=== PATIENT | female | born 1975 | race Caucasian/White ===

== ENCOUNTER 2017-03-12 19:58 | Emergency (ER) | payer MEDICAID ==
[2017-03-12 20:21] LABS: HEMATOCRIT 39.5 % (36.0-47.0); HEMOGLOBIN 13.2 g/dL (12.0-15.5); HGB HCT DIFFERENCE 0.1; MEAN CORPUSCULAR HGB CONC 33.4 g/dL (32.0-36.0); MEAN CORPUSCULAR VOLUME 90 fl (80-97); RED CELL DISTRIBUTION WIDTH 14.6 % (11.5-14.0)
--- NOTE | 2017-03-12 20:27 | ER Document Report ---
ED Substance Abuse / Acc. OD - General Stated Complaint: POSSIBLE OVERDOSE Time Seen by Provider: 03/12/17 20:10 Notes: Patient is a 41-year-old female who comes by EMS for chief complaint of overdose on heroin. Patient significant other called EMS reportedly, patient was initially gasping and very sedated, she was given 2 mg of intranasal Narcan , she responded very well to this and became alert and cooperative. Patient reports that she was having pain in her right arm/hand and in her back, she does have chronic pain, she used to be on pain management years ago but took herself off, she states that she was provided with the option of "a small hit", she states she made a stupid decision and took some. She states she has never done this before. She is treated for anxiety/PTSD/depression, she has never attempted suicide, she states she was just trying to feel better. She states she was feeling nauseated before but now she feels fine. She denies any other drug use or ingestion. - Related Data Allergies/Adverse Reactions: gabapentin [Gabapentin] Allergy (Verified 11/12/12 13:37) tramadol [Tramadol] Allergy (Verified 11/12/12 13:37) Past Medical History - General Information source: Patient - Social History Smoking Status: Never Smoker Frequency of alcohol use: None Drug Abuse: None Lives with: Family Family History: Reviewed & Not Pertinent Psychiatric Medical History: Reports: Hx Anxiety, Hx Depression Past Surgical History: Reports: Hx Gynecologic Surgery - tubal ligation, Hx Orthopedic Surgery - cervical fusion - Immunizations Immunizations up to date: Yes Hx Diphtheria, Pertussis, Tetanus Vaccination: Yes Review of Systems - Review of Systems Constitutional: No symptoms reported EENT: No symptoms reported Cardiovascular: See HPI Respiratory: See HPI Gastrointestinal: No symptoms reported Genitourinary: No symptoms reported Female Genitourinary: No symptoms reported Musculoskeletal: No symptoms reported Skin: No symptoms reported Hematologic/Lymphatic: No symptoms reported Neurological/Psychological: No symptoms reported Physical Exam - Vital signs Vitals: BP 115/85 03/12/17 20:02 Interpretation: Normal - General General appearance: Appears well, Alert In distress: None - Patient is tearful but she does not appear in any distress, she is alert, attentive, cooperative - HEENT Head: Normocephalic, Atraumatic Eyes: Normal Conjunctiva: Normal Extraocular movements intact: Yes Eyelashes: Normal Pupils: PERRL Nasal: Normal Mouth/Lips: Normal Mucous membranes: Normal Pharynx: Normal Neck: Normal - Respiratory Respiratory status: No respiratory distress Chest status: Nontender Breath sounds: Normal. No: Decreased air movement, Wheezing Chest palpation: Normal - Cardiovascular Rhythm: Regular. No: Tachycardia Heart sounds: Normal auscultation, S1 appreciated, S2 appreciated Murmur: No - Abdominal Inspection: Normal Distension: No distension Bowel sounds: Normal Tenderness: Nontender. No: Tender, Guarding Organomegaly: No organomegaly - Back Back: Normal, Nontender. No: Tender - Extremities General upper extremity: Normal inspection, Nontender, Normal ROM, Normal strength General lower extremity: Normal inspection, Nontender, Normal ROM, Normal strength - Neurological Neuro grossly intact: Yes Cognition: Normal Orientation: AAOx4 Good Coma Scale Eye Opening: Spontaneous [place] Coma Scale Verbal: Oriented [place] Coma Scale Motor: Obeys Commands Good Coma Scale Total: 15 Speech: Normal Motor strength normal: LUE, RUE, LLE, RLE Sensory: Normal - Psychological Associated symptoms: Tearful - Skin Skin Temperature: Warm Skin Moisture: Dry Skin Color: Normal Course - Re-evaluation Re-evalutation: Patient is actually tearful, she states she feels really embarrassed, she states she just wanted to feel better and she did not want to commit suicide. Patient is alert, cooperative, remorseful but is otherwise well-appearing. Vital signs unremarkable. Will continue to monitor, workup pending. Patient has been reevaluated twice, has been here for a couple of hours, she has remained alert throughout, no somnolence, no abnormalities with her breathing, no hypoxia. She has been here beyond the average duration of Narcan and has had no return of symptoms. Chest x-ray, workup unremarkable. I discussed with patient again the dangers of recreational illegal drugs, discussed both immediate life-threatening risks and long-term risks. Patient states she does not want to , she did not plan to hurt herself, she states that she has learned her lesson and she will never use illegal substances again. She states she has good follow-up with psychiatry and that she will follow-up with them on Tuesday, she states she will continue her current medications. Discussed return precautions with patient, patient states understanding and agreement, she states she will not be at home alone tonight - Vital Signs Vital signs: Temp Pulse Resp BP Pulse Ox 25 H 103/66 95 03/12/17 22:52 03/12/17 22:52 03/12/17 22:52 - Laboratory Result Diagrams: 03/12/17 20:00 03/12/17 20:00 Laboratory results interpreted by me: 03/12/17 03/12/17 20:00 20:54 RDW 14.6 H Band Neutrophils % 1 L Urine Protein 100 H Discharge - Discharge Clinical Impression: Overdose Qualifiers: Encounter type: initial encounter Injury intent: accidental or unintentional Qualified Code(s): T50.901A - Poisoning by unspecified drugs, medicaments and biological substances, accidental (unintentional), initial encounter Condition: Stable Disposition: HOME, SELF-CARE Additional Instructions: Avoid any recreational or illegal substances, these are life-threatening and you have a high risk of both the and serious long-term outcomes when using these. Follow-up with your provider on Tuesday for additional evaluation and management. Return to the emergency department for any concerning symptoms or if something is not right.
[2017-03-12 20:39] LABS: ALANINE AMINOTRANSFERASE 28 U/L (9-52); ALBUMIN 4.4 g/dL (3.5-5.0); ALKALINE PHOSPHATASE 57 U/L (38-126); ANION GAP 11 (5-19); ASPARTATE AMINO TRANSFERASE 35 U/L (14-36); BILIRUBIN,DIRECT 0.4 mg/dL (0.0-0.4); BILIRUBIN,TOTAL 0.4 mg/dL (0.2-1.3); BLOOD UREA NITROGEN 14 mg/dL (7-20); CALCIUM 9.5 mg/dL (8.4-10.2); CARBON DIOXIDE 24 mmol/L (22-30); CHLORIDE 105 mmol/L (98-107); CREATININE RESULT 0.77 mg/dL (0.52-1.25); GLUCOSE 98 mg/dL (75-110); POTASSIUM 3.9 mmol/L (3.6-5.0); SODIUM 140.4 mmol/L (137-145); TOTAL PROTEIN 7.7 g/dL (6.3-8.2)
[2017-03-12 20:40] LABS: ALCOHOL < 10 mg/dL (NONE DETECTED)
[2017-03-12 20:44] LABS: BAND NEUTROPHILS % (MANUAL) 1 % (3-5); BASOPHILS % (MANUAL) 0 % (0-2); EOSINOPHILS % (MANUAL) 4 % (0-6); LYMPHOCYTES % (MANUAL) 44 % (13-45); TOTAL CELLS COUNTED 100
[2017-03-12 20:45] LABS: ANISOCYTOSIS SLIGHT; TOXIC GRANULATION SLIGHT
--- NOTE | 2017-03-12 20:46 | RADIOLOGY REPORT (SQ) ---
EXAM DESCRIPTION: CHEST SINGLE VIEW COMPLETED DATE/TIME: 03/12/2017 8:37 pm REASON FOR STUDY: overdosed, initial gasping COMPARISON: 07/24/2013 EXAM PARAMETERS: NUMBER OF VIEWS: One view. TECHNIQUE: Single frontal radiographic view of the chest acquired. RADIATION DOSE: NA LIMITATIONS: None. FINDINGS: LUNGS AND PLEURA: No opacities, masses or pneumothorax. No pleural effusion. MEDIASTINUM AND HILAR STRUCTURES: No masses. Contour normal. HEART AND VASCULAR STRUCTURES: Heart normal in size. Normal vasculature. BONES: No acute findings. HARDWARE: None in the chest. OTHER: No other significant finding. IMPRESSION: NO ACUTE RADIOGRAPHIC FINDING IN THE CHEST. TECHNICAL DOCUMENTATION: JOB ID: [id number]
[2017-03-12 21:46] LABS: APPEARANCE,URINE CLEAR; BILIRUBIN,URINE NEGATIVE (NEGATIVE); GLUCOSE, URINE NEGATIVE (NEGATIVE); KETONES,URINE NEGATIVE (NEGATIVE); LEUKOCYTE ESTERASE,URINE NEGATIVE (NEGATIVE); NITRITE,URINE NEGATIVE (NEGATIVE); PROTEIN,URINE 100 mg/dL (NEGATIVE); URINE SPECIFIC GRAVITY 1.012; UROBILINOGEN,URINE NEGATIVE mg/dL (<2.0)
[2017-03-12 21:59] LABS: URINE BARBITURATES SCREEN NEGATIVE; URINE METHADONE SCREEN NEGATIVE; URINE OPIATES LOW UNCONFIRMED POSITIVE; URINE PHENCYCLIDINE SCREEN NEGATIVE
[2017-03-12 23:01] VITALS: BP 103/66
--- NOTE | 2017-03-13 16:58 | EKG REPORT ---
SEVERITY:- NORMAL ECG - SINUS RHYTHM : Confirmed by: Trang Duarte MD 13-Mar-2017 16:57:17
== END 2017-03-12 23:01 | disposition home or self-care (01) ==
LOC: ER 19:58
DX: T40.1X1A Poisoning by heroin, accidental (unintentional), initial encounter (principal); M79.641 Pain in right hand; M54.9 Dorsalgia, unspecified; G89.29 Other chronic pain; F41.9 Anxiety disorder, unspecified; F32.9 Major depressive disorder, single episode, unspecified; F43.10 Post-traumatic stress disorder, unspecified; Z88.6 Allergy status to analgesic agent; Z88.5 Allergy status to narcotic agent
CPT/HCPCS: 36415; 71010; 80053; 80307; 81001; 81025; 85025; 93005; 93010; 99284

== ENCOUNTER 2017-10-07 10:41 | Emergency (ER) | payer MEDICAID ==
[2017-10-07] MEDS ORDERED: TETRACAINE HCL 0.5% OPH SOLN 2 ML OS ONE (10:58)
[2017-10-07] MEDS ORDERED: HYDROCODONE/ACETAMINOPHEN 5-325 MG TABLET PO ONE (11:28)
--- NOTE | 2017-10-07 12:12 | RADIOLOGY REPORT (SQ) ---
EXAM DESCRIPTION: CT FACIAL AREA WITHOUT COMPLETED DATE/TIME: 10/07/2017 11:56 am REASON FOR STUDY: left orbital trauma COMPARISON: CT brain 12/17/2010 TECHNIQUE: Noncontrasted images through the facial bones and orbits windowed for bone and soft tissu e. Additional coronal and sagittal reconstructed images reviewed. All images stored on PACS. All CT scanners at this facility use dose modulation, iterative reconstruction, and/or weight based d osing when appropriate to reduce radiation dose to as low as reasonably achievable (ALARA). [facility]: Dose Right [facility]: CareDose [facility]: Dose Right [facility]: Teradose 4D [facility]: [employer] RADIATION DOSE: CT Rad equipment meets quality standard of care and radiation dose reduction techniq ues were employed. CTDIvol: 30.4 mGy. DLP: 532 mGy-cm. mGy. LIMITATIONS: None. FINDINGS: FACIAL BONES: There is a hairline nondisplaced nondepressed fracture through the anterior wall left maxillary sinus with adjacent mucous membrane thickening and fluid in the left maxillary si nus. Hairline fracture is best shown on axial images 32-34 and sagittal image 36 through 38. Question nondisplaced fracture through the posterior wall left maxillary sinus on axial images 29 and 30 with adjacent mucous membrane thickening. No definite left orbital floor fracture. No intra orbital air. ORBITS: Intact. No fracture. Symmetric intact globes and retroorbital soft tissues. Mild left pres eptal orbital soft tissue swelling PARANASAL SINUSES: Left maxillary sinus anterior and lateral wall mucous membrane thickening and air bubbles, adjacent to hairline nondisplaced fractures. No nasal polyps. Maxillary sinus outlets are p atent. SOFT TISSUES: Left preseptal orbital soft tissue swelling. Very mild left pre maxillary soft tissue swelling INFERIOR BRAIN: Limited view. No acute findings. OTHER: No other significant finding. IMPRESSION: Hairline nondisplaced fractures are suspected along the left anterior wall and lateral w all maxillary sinus. No left orbital floor fractures identified. Very mild left preseptal orbital soft tissue swelling is seen. TECHNICAL DOCUMENTATION: JOB ID: [id number] Quality ID # [id number]: Final reports with documentation of one or more dose reduction techniques (e.g., Au tomated exposure control, adjustment of the mA and/or kV according to patient size, use of iterative reconstruction technique) 2010 [employer]- All Rights Reserved Reading location - IP/workstation name: [email or web address]
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
[2017-10-07 13:16] VITALS: BP 113/70
== END 2017-10-07 13:30 | disposition home or self-care (01) ==
LOC: ER 10:41
DX: S02.80XA Fracture of other specified skull and facial bones, unspecified side, initial encounter for closed fracture (principal); H53.8 Other visual disturbances; H57.11 Ocular pain, right eye; Y04.2XXA Assault by strike against or bumped into by another person, initial encounter; Z88.6 Allergy status to analgesic agent; Z88.5 Allergy status to narcotic agent
CPT/HCPCS: 99284; 70486; J3490

== ENCOUNTER 2018-02-09 20:50 | Emergency (ER) | payer MEDICAID ==
--- NOTE | 2018-02-09 22:54 | ER Document Report ---
ED Medical Screen (RME) - General Chief Complaint: Vaginal Bleeding Stated Complaint: VAGINAL BLEEDING Time Seen by Provider: 02/09/18 22:49 Notes: 42-year-old A1 at 10-13 weeks gestation by last menstrual period, started bleeding and cramping within the past day. Denies trauma. States she had a tubal ligation but this is her second since the tubal ligation. Last was not an ectopic . TRAVEL OUTSIDE OF THE [place] IN LAST 30 DAYS: No - Related Data Allergies/Adverse Reactions: gabapentin [Gabapentin] Allergy (Verified 11/12/12 13:37) tramadol [Tramadol] Allergy (Verified 11/12/12 13:37) Past Medical History - Social History Frequency of alcohol use: None Drug Abuse: None Renal/ Medical History: Denies: Hx Peritoneal Dialysis Psychiatric Medical History: Reports: Hx Anxiety, Hx Depression Past Surgical History: Reports: Hx Gynecologic Surgery - tubal ligation, Hx Orthopedic Surgery - cervical fusion - Immunizations Immunizations up to date: Yes Hx Diphtheria, Pertussis, Tetanus Vaccination: Yes Physical Exam - Vital signs Vitals: Temp Pulse Resp BP Pulse Ox 97.7 F 96 18 113/70 100 02/09/18 20:55 02/09/18 20:55 02/09/18 20:55 02/09/18 20:55 02/09/18 20:55 - General General appearance: Appears well In distress: None - Abdominal Inspection: Normal Tenderness: Nontender Course - Vital Signs Vital signs: Temp Pulse Resp BP Pulse Ox 97.7 F 96 18 113/70 100 02/09/18 20:55 02/09/18 20:55 02/09/18 20:55 02/09/18 20:55 02/09/18 20:55
[2018-02-09 23:14] LABS: ABSOLUTE BASOPHILS # (AUTO) 0.1 10^3/uL (0.0-0.2); ABSOLUTE EOSINOPHILS # (AUTO) 0.4 10^3/uL (0.0-0.6); ABSOLUTE LYMPHOCYTES (AUTO) 3.1 10^3/uL (0.5-4.7); ABSOLUTE MONOCYTES (AUTO) 0.7 10^3/uL (0.1-1.4); ABSOLUTE NEUT (AUTO) 7.1 10^3/uL (1.7-8.2); BASOPHILS % (AUTO) 0.5 % (0-2); EOSINOPHILS % (AUTO) 3.5 % (0-6); HEMOGLOBIN 13.5 g/dL (12.0-15.5); LYMPHOCYTES % (AUTO) 27.1 % (13-45); MEAN CORPUSCULAR HEMOGLOBIN 29.6 pg (27.0-33.4); MEAN CORPUSCULAR HGB CONC 33.1 g/dL (32.0-36.0); MEAN CORPUSCULAR VOLUME 89 fl (80-97); MONOCYTES % (AUTO) 6.6 % (3-13); PLATELET COUNT 207 10^3/uL (150-450); RED BLOOD COUNT 4.58 10^6/uL (3.72-5.28); SEGMENTED NEUTROPHILS % (AUTO) 62.3 % (42-78); TOTAL CELLS COUNTED % (AUTO) 100 %; WHITE BLOOD COUNT 11.4 10^3/uL (4.0-10.5)
[2018-02-09] MEDS ORDERED: ONDANSETRON 4 MG TAB.RAPDIS PO ONE (23:57)
[2018-02-10] MEDS ORDERED: IBUPROFEN 600 MG TABLET PO ONE (00:19)
--- NOTE | 2018-02-10 00:19 | ER Document Report ---
ED General - General Chief Complaint: Vaginal Bleeding Stated Complaint: VAGINAL BLEEDING Time Seen by Provider: 02/09/18 22:49 Notes: Patient is a 42-year-old female who presents with vaginal bleeding and lower abdominal cramping in the context of currently believing that she is . The patient states that she had a positive test while in group home. Her LMP was approximately 10-12 weeks ago. She had a tubal ligation in the past but has had one since that time. She describes her abdominal pain as being located toward her pelvis and has a throbbing, aching, cramping pain. She has not tried anything to improve the pain. Nothing worsens the pain. She states this feels similar to menstrual pains that she has had in the past. She also notes bleeding through approximately 1 pad over the last 3 hours. She denies any fever or constitutional symptoms. She has not seen her general doctor regarding today's concerns. TRAVEL OUTSIDE OF THE [place] IN LAST 30 DAYS: No - Related Data Allergies/Adverse Reactions: gabapentin [Gabapentin] Allergy (Verified 11/12/12 13:37) tramadol [Tramadol] Allergy (Verified 11/12/12 13:37) Past Medical History - General Information source: Patient - Social History Smoking Status: Former Smoker Frequency of alcohol use: None Drug Abuse: None Lives with: Spouse/Significant other Family History: Reviewed & Not Pertinent Patient has suicidal ideation: No Patient has homicidal ideation: No Renal/ Medical History: Denies: Hx Peritoneal Dialysis Psychiatric Medical History: Reports: Hx Anxiety, Hx Depression Past Surgical History: Reports: Hx Gynecologic Surgery - tubal ligation, Hx Orthopedic Surgery - cervical fusion - Immunizations Immunizations up to date: Yes Hx Diphtheria, Pertussis, Tetanus Vaccination: Yes Review of Systems - Review of Systems Notes: Constitutional: Negative for fever. HENT: Negative for sore throat. Eyes: Negative for visual changes. Cardiovascular: Negative for chest pain. Respiratory: Negative for shortness of breath. Gastrointestinal: Positive for lower abdominal pain Genitourinary: Positive for vaginal bleeding Musculoskeletal: Negative for back pain. Skin: Negative for rash. Neurological: Negative for headaches, weakness or numbness. 10 point ROS negative except as marked above and in HPI. Physical Exam - Vital signs Vitals: Temp Pulse Resp BP Pulse Ox 97.7 F 96 18 113/70 100 02/09/18 20:55 02/09/18 20:55 02/09/18 20:55 02/09/18 20:55 02/09/18 20:55 Interpretation: Normal Notes: PHYSICAL EXAMINATION: GENERAL: Well-appearing, well-nourished and in no acute distress. HEAD: Atraumatic, normocephalic. EYES: Pupils equal round and reactive to light, extraocular movements intact, sclera anicteric, conjunctiva are normal. ENT: nares patent, oropharynx clear without exudates. Moist mucous membranes. NECK: Normal range of motion, supple without lymphadenopathy LUNGS: Breath sounds clear to auscultation bilaterally and equal. No wheezes rales or rhonchi. HEART: Regular rate and rhythm without murmurs ABDOMEN: Soft, nontender, normoactive bowel sounds. No guarding, no rebound. No masses appreciated. EXTREMITIES: Normal range of motion, no pitting or edema. No cyanosis. NEUROLOGICAL: No focal neurological deficits. Moves all extremities spontaneously and on command. PSYCH: Normal mood, normal affect. SKIN: Warm, Dry, normal turgor, no rashes or lesions noted. Course - Re-evaluation Re-evalutation: 02/10/18 00:27 Patient presents with several hours of lower abdominal cramping and heavy vaginal bleeding. The patient states that she had been told while in group home that she was based on a positive blood test. LMP was approximately 12 weeks ago. Patient's serum hCG is negative. Her hemoglobin is within normal limits. She has not bled through more than 1 pad per hour at any time. On abdominal examination she has no focal tenderness, rebound or guarding. She states that the vaginal bleeding is slowing. Vitals within normal limits. She has not had any fever or constitutional symptoms I do not suspect pelvic inflammatory disease, tubo-ovarian abscess, acute appendicitis, or any alternative life threatening allergy at this time based on exam and history. I have offered a vaginal ultrasound to the patient which she and her significant other the bedside of declined stating that now that they know she is not with a very firmly believe that this is an acute menstrual cycle. At this time will discharge with return precautions and follow-up recommendations. Verbal discharge instructions given a the bedside and opportunity for questions given. Medication warnings reviewed. Patient is in agreement with this plan and has verbalized understanding of return precautions and the need for primary care follow-up in the next 24-72 hours. - Vital Signs Vital signs: Temp Pulse Resp BP Pulse Ox 98.4 F 83 20 102/66 100 02/10/18 00:40 02/10/18 00:40 02/10/18 00:40 02/10/18 00:40 02/10/18 00:40 - Laboratory Result Diagrams: 02/09/18 23:00 Laboratory results interpreted by me: 02/09/18 23:00 WBC 11.4 H RDW 15.0 H Discharge - Discharge Clinical Impression: Abdominal cramping, Vaginal bleeding Condition: Good Disposition: HOME, SELF-CARE Additional Instructions: You are not . Your blood count is normal. You need to follow-up with [facility] or your primary care physician the next 1-3 days. Return immediately if you worsening pain, you began bleeding through more than 2 pads per hour for more than 3 hours, you pass out, have persistent vomiting, develop a fever greater than 100.4F, or any other symptoms that are concerning to you. For your pain: Take ibuprofen 600 mg and acetaminophen 1000 mg every 6 hours together as needed for pain.
[2018-02-10] MEDS ORDERED: ACETAMINOPHEN 325 MG TABLET PO ONE (00:24)
[2018-02-10 00:47] VITALS: BP 102/66
== END 2018-02-10 00:45 | disposition home or self-care (01) ==
LOC: ER 20:50
DX: N93.9 Abnormal uterine and vaginal bleeding, unspecified (principal); R10.30 Lower abdominal pain, unspecified; Z32.02 Encounter for pregnancy test, result negative; Z98.51 Tubal ligation status; Z88.6 Allergy status to analgesic agent; Z88.5 Allergy status to narcotic agent; Z87.891 Personal history of nicotine dependence
CPT/HCPCS: 99284; 86900; 86901; 36415; 84702; 85025; J3490 ×2; S0119

== ENCOUNTER 2018-05-01 15:53 | Emergency (ER) | payer MEDICAID ==
[2018-05-01] MEDS ORDERED: KETOROLAC TROMETHAMINE INJ/PF 30 MG/1 ML SDV IM ONE (17:10)
[2018-05-01] MEDS ORDERED: DEXAMETHASONE 4 MG TABLET PO ONE (17:11)
[2018-05-01] MEDS ORDERED: LIDOCAINE 5% (700 MG) TRANSDERMAL ADH..PATCH TP ONE (17:11)
--- NOTE | 2018-05-01 17:47 | RADIOLOGY REPORT (SQ) ---
EXAM DESCRIPTION: L SPINE WHOLE COMPLETED DATE/TIME: 05/01/2018 5:36 pm REASON FOR STUDY: low back pain with left sciatica COMPARISON: None. NUMBER OF VIEWS: Five views including obliques. TECHNIQUE: AP, lateral, oblique, and sacral radiographic images acquired of the lumbar spine. LIMITATIONS: None. FINDINGS: MINERALIZATION: Normal. SEGMENTATION: Normal. No transitional anatomy. ALIGNMENT: Normal. VERTEBRAE: Maintained height. No fracture or worrisome bone lesion. DISCS: Preserved height. No significant osteophytes or end plate irregularity. POSTERIOR ELEMENTS: Pedicles and facets are intact. No pars defect or posterior arch defects. HARDWARE: None in the spine. PARASPINAL SOFT TISSUES: Normal. PELVIS: Intact as visualized. No fractures or worrisome bone lesions. SI joints intact. OTHER: No other significant finding. IMPRESSION: NORMAL 5 VIEW LUMBAR SPINE. TECHNICAL DOCUMENTATION: JOB ID: [id number] [employer]- All Rights Reserved Reading location - IP/workstation name: [email or web address]
--- NOTE | 2018-05-01 18:17 | ER Document Report ---
ED Neck/Back Problem - General Chief Complaint: Low Back Pain Stated Complaint: LOWER BACK PAIN Time Seen by Provider: 05/01/18 16:40 Mode of Arrival: Ambulatory Information source: Patient Notes: 42-year-old female presents to ED for complaint of low back pain. She states she came from the urgent care because they stated they could not help her because she had hot pain going down her buttocks down her thigh. Patient states she has had this in the past but has not been this bad. Patient is alert and oriented respirations regular and unlabored speaking in full sentences. TRAVEL OUTSIDE OF THE [place] IN LAST 30 DAYS: No - HPI Patient complains to provider of: Lower back Onset: Other - Several days Onset: Chronic Timing: Waxing and waning Quality of pain: Burning, Sharp, Throbbing Severity: Moderate Pain Level: 4 Recent injury: No Associated symptoms: Like prior neck/back pain, Radiation to leg, Lower back pain. denies: Incontinence, Motor loss, Numbness/tingling, Sensory loss, Sweaty , Unable to urinate Exacerbated by: Movement of trunk, Sitting position Relieved by: Nothing Similar symptoms previously: Yes - Not as bad or on the side Recently seen / treated by doctor: No - Related Data Allergies/Adverse Reactions: gabapentin [Gabapentin] Allergy (Verified 11/12/12 13:37) tramadol [Tramadol] Allergy (Verified 11/12/12 13:37) Past Medical History - General Information source: Patient - Social History Smoking Status: Current Every Day Smoker Cigarette use (# per day): Yes - 5 cigarettes a day Chew tobacco use (# tins/day): No Smoking Education Provided: Yes - 4 minutes Frequency of alcohol use: Rare Drug Abuse: None Lives with: Alone Family History: Reviewed & Not Pertinent Patient has suicidal ideation: No Patient has homicidal ideation: No - Past Medical History Cardiac Medical History: Reports: None Pulmonary Medical History: Reports: None EENT Medical History: Reports: None Neurological Medical History: Reports: None Endocrine Medical History: Reports: None Renal/ Medical History: Reports: None Malignancy Medical History: Reports: None GI Medical History: Reports: None Musculoskeletal Medical History: Reports Hx Arthritis, Reports Hx Musculoskeletal Deformity, Reports Hx Musculoskeletal Trauma Skin Medical History: Reports None Psychiatric Medical History: Reports: Hx Anxiety, Hx Depression - anxiety Traumatic Medical History: Reports: None Infectious Medical History: Reports: None Past Surgical History: Reports: Hx Gynecologic Surgery - tubal ligation, Hx Orthopedic Surgery - cervical fusion - Immunizations Immunizations up to date: Yes Hx Diphtheria, Pertussis, Tetanus Vaccination: Yes Review of Systems - Review of Systems Notes: REVIEW OF SYSTEMS: CONSTITUTIONAL : Denies fever, chills, or sweats. Denies recent illness. EENT: Denies eye, ear, throat, or mouth pain or symptoms. Denies nasal or sinus congestion or discharge. Denies throat, tongue, or mouth swelling or difficulty swallowing. CARDIOVASCULAR: Denies chest pain. Denies palpitations or racing or irregular heart beat. Denies ankle edema. RESPIRATORY: Denies cough, cold, or chest congestion. Denies shortness of breath, difficulty breathing, or wheezing. GASTROINTESTINAL: Denies abdominal pain or distention. Denies nausea, vomiting , or diarrhea. Denies blood in vomitus, stools, or per rectum. Denies black, tarry stools. Denies constipation. GENITOURINARY: Denies difficulty urinating, painful urination, burning, frequency, blood in urine, or discharge. FEMALE GENITOURINARY: Denies vaginal bleeding, heavy or abnormal periods, irregular periods. Denies vaginal discharge or odor. MUSCULOSKELETAL: Complains of low back pain with radiation down the left leg increased pain with movement sitting or walking. Denies any loss of control of bowel or bladder, saddle anesthesia, loss control or sensation to the lower extremities. SKIN: Denies rash, lesions or sores. HEMATOLOGIC : Denies easy bruising or bleeding. LYMPHATIC: Denies swollen, enlarged glands. NEUROLOGICAL: Denies confusion or altered mental status. Denies passing out or loss of consciousness. Denies dizziness or lightheadedness. Denies headache. Denies weakness or paralysis or loss of use of either side. Denies problems with gait or speech. Denies sensory loss, numbness, or tingling. Denies seizures. PHYSICAL EXAMINATION: GENERAL: Well-appearing, well-nourished and in no acute distress. HEAD: Atraumatic, normocephalic. EYES: Pupils equal round and reactive to light, extraocular movements intact, conjunctiva are normal. ENT: Nares patent, oropharynx clear without exudates. Moist mucous membranes. NECK: Normal range of motion, supple without lymphadenopathy LUNGS: Breath sounds clear to auscultation bilaterally and equal. No wheezes rales or rhonchi. HEART: Regular rate and rhythm without murmurs ABDOMEN: Soft, nontender, nondistended abdomen. No guarding, no rebound. No masses appreciated. Female : deferred Musculoskeletal: Tenderness to the lower back radiating across left buttock cheek down the left thigh full range of motion brisk cap refills pulses present palpable strength equal to the pedal pushes. NEUROLOGICAL: Cranial nerves grossly intact. Normal speech, normal gait. Normal sensory, motor exams PSYCH: Normal mood, normal affect. SKIN: Warm, Dry, normal turgor, no rashes or lesions noted. PSYCHIATRIC: Denies anxiety or stress. Denies depression, suicidal ideation, or homicidal ideation. ALL OTHER SYSTEMS REVIEWED AND NEGATIVE. Dictation was performed using [employer] voice recognition software Physical Exam - Vital signs Vitals: Temp Pulse Resp BP Pulse Ox 98.1 F 109 H 20 131/88 H 100 05/01/18 15:58 05/01/18 15:58 05/01/18 15:58 05/01/18 15:58 05/01/18 15:58 Course - Re-evaluation Re-evalutation: 05/01/18 22:09 After performing a Medical Screening Examination, I estimate there is LOW risk for EXPANDING OR RUPTURED ABDOMINAL AORTIC ANEURYSM, CAUDA EQUINA SYNDROME, EPIDURAL MASS LESION, or HERNIATED DISK CAUSING SEVERE SPINAL STENOSIS, thus I consider the discharge disposition reasonable. I have reevaluated this patient multiple times and no significant life threatening changes are noted. The patient and I have discussed the diagnosis and risks, and we agree with discharging home and close follow-up. We also discussed returning to the Emergency Department immediately if new or worsening symptoms occur with the understanding that symptoms and presentations can change. We have discussed the symptoms which are most concerning (e.g., saddle anesthesia, urinary or bowel incontinence or retention, changing or worsening pain) that necessitate immediate return. - Vital Signs Vital signs: Temp Pulse Resp BP Pulse Ox 98.0 F 90 18 123/70 99 05/01/18 18:28 05/01/18 18:28 05/01/18 18:28 05/01/18 18:28 05/01/18 18:28 - Diagnostic Test Radiology reviewed: Image reviewed, Reports reviewed Discharge - Discharge Clinical Impression: Low back pain Qualifiers: Chronicity: unspecified Back pain laterality: left Sciatica presence: with sciatica Sciatica laterality: sciatica of left side Qualified Code(s): M54.42 - Lumbago with sciatica, left side Condition: Stable Disposition: HOME, SELF-CARE Instructions: Family Physicians / Practices Additional Instructions: LOW BACK PAIN: Three out of every four people will have an episode of disabling back pain during their lifetime. Most commonly the pain is due to straining of the muscles and ligaments in the low back. Usual treatment includes: (1) Rest on a firm surface. Avoid lying on your stomach. (2) Ice pack the painful area. After a few days, gentle heat may be used intermittently to relax the area, or ice packs can be continued. (3) Medication may be needed -- muscle relaxers and antiinflammatory medicines are commonly used. (4) As the back improves, exercises are prescribed to strengthen the back and abdominal muscles. Your doctor will advise you on the proper care for your back at each stage in your recovery. You may be better in a few days -- or healing may take several weeks. If new symptoms of a "herniated disc" (radiation of pain, numbness, or tingling down the back of the leg or weakness in the leg) occur, you should be re-examined. Further testing may be necessary. Stretching Exercises for the Back The physician has recommended that you begin stretching exercises for your back. These are often used even while the back is painful. However, you should notify the physician if the activities seem to increase your pain. PELVIC TILT: Lie flat on your back with knees bent. Tighten your stomach and buttock muscles so it flattens your lower back against the floor. Hold 10 seconds. Repeat 10 times, twice daily. KNEE RAISE: Lying on the back with knees bent, raise one knee to your chest, then the other. Hold both knees against the chest 10 seconds, then lower one knee at a time. Repeat 10 times, twice daily. PARTIAL TRUNK RAISE: Lie face down, arms at your sides. Keeping your waist on the floor, use your arms raise your chest up. Support yourself on your elbows for 30 seconds. Repeat twice daily, increasing the time to two minutes as you recover. STEROID MEDICATION: You have been given a medicine of the cortisone/steroid class. This medication is used to control inflammation or allergy. It is usually only given for a short period of time, until the acute process subsides. There are usually no side effects from short-term use of cortisone-like medications. Some persons feel an increased sense of well-being and are not sleepy at bedtime. Long-term use of cortisone medications is best avoided, unless required for a severe condition. If your condition does not remit, or relapses after the course of corticosteroid medication, you should consult your physician. Toradol Injection You have been given an injection of ketorolac tromethamine (Toradol). This is an excellent, safe drug for pain control. It also has potent antiinflammatory action. You should have significant pain relief within about one hour. Toradol is not addicting and is non-sedating. It does not interfere with driving or work. Call or return if you develop itching, hives, shortness of breath, or rash. MUSCLE RELAXERS: Muscle relaxing medications are usually prescribed for acute muscle spasm or injury to the neck and back. They are often combined with antiinflammatory pain medication for increased relief. You may stop the muscle relaxer when the pain and stiffness have improved. Start the medication again if spasms recur. Muscle relaxers may cause drowsiness, especially with the first dose. Do not operate machinery or drive while under the effects of the medication. Most muscle relaxers last up to 24 hours. Do not combine the medication with alcohol. ICE PACKS: Apply ice packs frequently against the painful area. Many different schedules are recommended, such as "20 minutes on, 20 minutes off" or "one hour ice, two hours rest." If you need to work, you may need to go longer between ice treatments. You should plan to have the area ice packed AT LEAST one fourth of the time. The ice should be applied over the wrap, tape, or splint, or over a layer of cloth -- not directly against the skin. Some ice bags have a built-in cloth and can be put directly on the skin. WARM PACKS: After approximately two days, apply gentle heat (such as a heating pad or hot water bottle) for about 20 to 30 minutes about every two hours -- at least four times daily. Warmth and elevation will help you make a more rapid recovery , and will ease the pain considerably. Do not use HOT heat, and never apply heat for longer than 30 minutes. The continuous heat can invisibly damage skin and muscles -- even when no burn is seen on the surface. Damaged muscles can make you MORE sore. You have had a Lidoderm patch applied to your back. This is prescription strength. You can buy these [id number]. You needed to take this 1 off in 12 hours. Follow the instructions on the box if you buy [id number] Lidoderm patches. FOLLOW-UP CARE: If you have been referred to a physician for follow-up care, call the physician s office for an appointment as you were instructed or within the next two days. If you experience worsening or a significant change in your symptoms, notify the physician immediately or return to the Emergency Department at any time for re-evaluation. Prescriptions: Methocarbamol [Robaxin 500 mg Tablet] 500 mg PO BID PRN #14 tablet PRN Reason: For Back Pain Forms: Elevated Blood Pressure, Smoking Cessation Education, Return to Work
[2018-05-01 18:30] VITALS: BP 123/70
== END 2018-05-01 18:30 | disposition home or self-care (01) ==
LOC: ER 15:53
DX: M54.42 Lumbago with sciatica, left side (principal); G89.29 Other chronic pain; F17.210 Nicotine dependence, cigarettes, uncomplicated; Z71.6 Tobacco abuse counseling; Z88.6 Allergy status to analgesic agent; Z88.5 Allergy status to narcotic agent
CPT/HCPCS: 99406; 99283; 96372; 72110; J3490 ×2; J1885

== ENCOUNTER 2018-05-04 05:42 | Emergency (ER) | payer MEDICAID ==
[2018-05-04] MEDS ORDERED: MORPHINE SULFATE 10 MG/ML INJ IM ONE (06:44)
[2018-05-04] MEDS ORDERED: KETOROLAC TROMETHAMINE 60 MG/2 ML SDV IM ONE (06:44)
[2018-05-04] MEDS ORDERED: METHOCARBAMOL 750 MG TABLET PO ONE (06:44)
[2018-05-04] MEDS ORDERED: PREDNISONE 20 MG TABLET PO ONE (06:45)
--- NOTE | 2018-05-04 06:45 | ER Document Report ---
ED General - General Chief Complaint: Leg Pain Stated Complaint: LEG PAIN Time Seen by Provider: 05/04/18 06:21 Notes: Patient is a 42-year-old female that presents to the emergency department for chief complaint of left thigh pain. Patient states that she has been having pain in her left thigh for the past 4 days, she was having pain similar to sciatica she has had 2 days ago, was treated with dexamethasone injection, and Toradol in the ED at that time. But this pain is not improved, she describes it over the left lateral distal thigh, she states it feels like spasming its tenths, occasionally feels a tingling sensation there as well. Denies any pain distal to the knee. She also denies any numbness, tingling or weakness associated with this, denies saddle anesthesias or paresthesias. Denies urinary or bladder incontinence. She currently rates the pain as a 8 out of 10 , describes as a constant aching sensation. Past Medical History: Depression Past Surgical History: Cervical spine fusion Social History: Admits to occasional tobacco use, denies alcohol or drug use. Family History: Reviewed and noncontributory for presenting illness Allergies: Reviewed, see documented allergy list. REVIEW OF SYSTEMS: Other than noted above, the 12 point review of systems was reviewed with the patient and were negative, all pertinent findings are included in the HPI. PHYSICAL EXAMINATION: Vital signs reviewed, nursing noted reviewed. GENERAL: Well-appearing, well-nourished and appears uncomfortable HEAD: Atraumatic, normocephalic. EYES: Eyes appear normal, extraocular movements intact, sclera anicteric, conjunctiva are normal. ENT: nares patent, oropharynx clear without exudates. Moist mucous membranes. NECK: Normal range of motion, supple without lymphadenopathy LUNGS: Breath sounds clear to auscultation bilaterally and equal. No wheezes rales or rhonchi. HEART: Regular rate and rhythm without murmurs ABDOMEN: Soft, nontender, normoactive bowel sounds. No rebound, guarding, or rigidity. No masses appreciated. EXTREMITIES: Patient has focal tenderness to palpation over the lateral IT band , over the distal third portion, the area does feel tense and possibly in spasm nontender, the knee has good range of motion, no effusion, and no pain with range of motion, the hip has good range of motion as well. Negative straight leg raising bilaterally. Otherwise good range of motion, no pitting or edema. There is no presence of rashes as well. NEUROLOGICAL: No focal neurological deficits. Moves all extremities spontaneously Motor and sensory grossly intact on exam. Patellar and Achilles tendon reflexes are +2/4 bilaterally. PSYCH: Normal mood, normal affect. SKIN: Warm, Dry, normal turgor, no rashes or lesions noted on exposed skin TRAVEL OUTSIDE OF THE [place] IN LAST 30 DAYS: No - Related Data Allergies/Adverse Reactions: dextromethorphan Allergy (Verified 05/04/18 06:24) gabapentin [Gabapentin] Allergy (Verified 11/12/12 13:37) tramadol [Tramadol] Allergy (Verified 11/12/12 13:37) Past Medical History - Social History Smoking Status: Current Every Day Smoker Family History: Reviewed & Not Pertinent Patient has suicidal ideation: No Patient has homicidal ideation: No Renal/ Medical History: Denies: Hx Peritoneal Dialysis Musculoskeletal Medical History: Reports Hx Arthritis, Reports Hx Musculoskeletal Deformity, Reports Hx Musculoskeletal Trauma Psychiatric Medical History: Reports: Hx Anxiety, Hx Depression - anxiety Past Surgical History: Reports: Hx Gynecologic Surgery - tubal ligation, Hx Orthopedic Surgery - cervical fusion - Immunizations Immunizations up to date: Yes Hx Diphtheria, Pertussis, Tetanus Vaccination: Yes Physical Exam - Vital signs Vitals: Temp Pulse Resp BP Pulse Ox 98.1 F 122 H 17 124/90 H 99 05/04/18 05:46 05/04/18 05:46 05/04/18 05:46 05/04/18 05:46 05/04/18 05:46 Course - Re-evaluation Re-evalutation: Patient seen and examined vital signs reviewed. Patient was evaluated and treated as appropriate for the patient's presenting symptoms and complaint, with consideration of any critical or life threatening conditions that may be associated with their obtained history and exam as noted above. Patient was treated with IM morphine, and Toradol, as well as p.o. Robaxin, and prednisone. The patient was re-evaluated and was improved and stable Evaluation was most consistent with left leg pain, nonspecific, possibly IT band syndrome, versus atypical lumbar radiculopathy. Plan of care was discussed with the patient at this point, after careful consideration I feel that that patient can be discharged from the emergency department, the patient was educated treatments and reasons to return to the emergency department based on their presumed diagnosis as noted above, they were advised to followup with a primary care physician in 2-3 days. Patient was agreeable to plan of care. *Note is created using voice recognition software and may contain spelling, syntax or grammatical errors. - Vital Signs Vital signs: Temp Pulse Resp BP Pulse Ox 98.1 F 122 H 17 124/90 H 99 05/04/18 05:46 05/04/18 05:46 05/04/18 05:46 05/04/18 05:46 05/04/18 05:46 Discharge - Discharge Clinical Impression: Left leg pain Condition: Stable Disposition: HOME, SELF-CARE Instructions: Leg Pain Nonspecific ([facility]) Additional Instructions: Please follow-up with orthopedic surgery, call for appointment, and may need physical therapy. Please take the medications as prescribed, otherwise follow- up with your primary care physician as well. You should also use warm compresses for 20 minutes on 20 minutes off at least 3 times daily to help with your pain, also you should take the prescribed medications to help as well. Prescriptions: Naproxen 500 mg PO BID #30 tablet Prednisone [Deltasone 20 mg Tablet] 3 tab PO DAILY 4 Days #12 tablet Referrals: JOSE J SARABIA MD [ACTIVE STAFF] - Follow up in 3-5 days (orthopedics )
[2018-05-04 07:39] VITALS: BP 104/61
== END 2018-05-04 07:46 | disposition home or self-care (01) ==
LOC: ER 05:42
DX: M79.605 Pain in left leg (principal); M79.652 Pain in left thigh; F17.200 Nicotine dependence, unspecified, uncomplicated
CPT/HCPCS: 99283; 96372; J1885; J3490; J2270; J7512

== ENCOUNTER 2018-05-09 00:42 | Emergency (ER) | payer MEDICAID ==
[2018-05-09] MEDS ORDERED: DIAZEPAM INJ 10 MG/2 ML DISP.SYRIN IM ONE (02:32)
--- NOTE | 2018-05-09 02:34 | ER Document Report ---
ED General - General Chief Complaint: Thigh Pain Stated Complaint: LEFT THIGH PAIN Time Seen by Provider: 05/09/18 02:21 Notes: Patient is a 42-year-old female presents with complaint of left thigh pain. She does have left corner of left eye pain for several weeks. She was seen here twice before. Initially was thought to be sciatica, for back. She placed in steroids and NSAIDs. She said her back pain is improved but she still has pain in her thigh and tonight she said she was probably has been going in and out of spasm and hurting very badly. She says she feels as if the muscles in her thighs or cramping. This is in her anterior thigh. She said every time she tries to flex her knee because the spasm into her anterior thigh muscles. No fevers. No new trauma or injury. No weakness or numbness into her leg. TRAVEL OUTSIDE OF THE [place] IN LAST 30 DAYS: No - Related Data Allergies/Adverse Reactions: dextromethorphan Allergy (Verified 05/04/18 06:24) gabapentin [Gabapentin] Allergy (Verified 11/12/12 13:37) tramadol [Tramadol] Allergy (Verified 11/12/12 13:37) Past Medical History - Social History Smoking Status: Current Every Day Smoker Frequency of alcohol use: Occasional Drug Abuse: None Family History: Reviewed & Not Pertinent Patient has suicidal ideation: No Patient has homicidal ideation: No Renal/ Medical History: Denies: Hx Peritoneal Dialysis Musculoskeletal Medical History: Reports Hx Arthritis, Reports Hx Musculoskeletal Deformity, Reports Hx Musculoskeletal Trauma Psychiatric Medical History: Reports: Hx Anxiety, Hx Depression - anxiety Past Surgical History: Reports: Hx Gynecologic Surgery - tubal ligation, Hx Orthopedic Surgery - cervical fusion - Immunizations Immunizations up to date: Yes Hx Diphtheria, Pertussis, Tetanus Vaccination: Yes Review of Systems - Review of Systems Notes: My Normal Review Basic REVIEW OF SYSTEMS: CONSTITUTIONAL : Denies fever, chills, or sweats. Denies recent illness. RESPIRATORY: Denies cough, cold, or chest congestion. Denies shortness of breath, difficulty breathing, or wheezing. GASTROINTESTINAL: Denies abdominal pain. Denies nausea, vomiting, or diarrhea. Denies constipation. Last BM: MUSCULOSKELETAL: Pain in left thigh. SKIN: Denies rash or skin lesions. NEUROLOGICAL: Denies sensory or motor loss. ALL OTHER SYSTEMS REVIEWED AND NEGATIVE. Physical Exam - Vital signs Vitals: Temp Pulse Resp BP Pulse Ox 97.2 F 103 H 16 122/90 H 99 05/09/18 00:50 05/09/18 00:50 05/09/18 00:50 05/09/18 00:50 05/09/18 00:50 - Notes Notes: General Appearance: Well nourished, alert, cooperative, no acute distress, no obvious discomfort. When I first into the room patient is sleeping soundly. Once I awaken her she starts saying she is having pain. Vitals: reviewed, See vital signs table. Head: no swelling or tenderness to the head Eyes: PERRL, EOMI, Conjuctiva clear Extremities: On exam patient has pain in her left thigh. Any movement of her knee causes pain left thigh. Thigh muscles actually soft. Her compartments are soft. She does not have any crepitance. I had her pull down her pants so I can evaluate the skin on her thigh. It is not red or warm and inflamed. She good strength with plantar and dorsiflexion to her foot. Distal sensation in her foot is intact. Good distal pulses. Good capillary refill. Skin: warm, dry, appropriate color, no rash Neuro: speech clear, oriented x 3, normal affect, responds appropriately to questions. Course - Re-evaluation Re-evalutation: 05/09/18 06:52 Patient describes what sounds to be muscle spasms in her left thigh. I will prescribe her Skelaxin. I encouraged her follow-up with Dr. Pierre has an appointment to follow-up with them in regards to her low back pain and thigh pain. Encouraged to return to ER if she has weakness or numbness into her leg, redness or swelling to her thigh, or any worsening of her symptoms. Dictation of this chart was performed using voice recognition software; therefore, there may be some unintended grammatical errors. - Vital Signs Vital signs: Temp Pulse Resp BP Pulse Ox 97.8 F 85 16 135/79 H 97 05/09/18 03:07 05/09/18 03:07 05/09/18 03:07 05/09/18 03:07 05/09/18 03:07 Discharge - Discharge Clinical Impression: Left thigh pain Condition: Good Disposition: HOME, SELF-CARE Additional Instructions: The shot given to you tonight may make you sleepy so do not drive for the next 12 hours. Please follow up with Dr. Ziegler as scheduled. please take the muscle relaxers as prescribed. Please return tot eh ER immediately if you have leg weakness or numbness, fevers, or feel unwell. Prescriptions: Metaxalone [Skelaxin 800 mg Tablet] 800 mg PO ASDIR PRN #20 tablet PRN Reason: Forms: Return to Work
[2018-05-09 03:08] VITALS: BP 135/79
== END 2018-05-09 03:07 | disposition home or self-care (01) ==
LOC: ER 00:42
DX: M79.652 Pain in left thigh (principal); Z88.8 Allergy status to other drugs, medicaments and biological substances; Z88.6 Allergy status to analgesic agent; Z88.5 Allergy status to narcotic agent; F17.200 Nicotine dependence, unspecified, uncomplicated
CPT/HCPCS: 99283; 96372; J3360

== ENCOUNTER 2018-07-25 03:33 | Emergency (ER) | payer MEDICAID ==
--- NOTE | 2018-07-25 06:26 | ER Document Report ---
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 And she fell while doing this. 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 She fell forward. She complains of right knee pain head and neck pain. Denies loss of consciousness. States she saw stars. Complains of severe 10 out of 10 pain all over. She does have a history of chronic pain and has had back surgeries in the past. She was seeing pain management. Patient mainly complains of severe 10 out of 10 pain in her right knee neck head and left shoulder. But she also complains of pain all over the place. Patient is crying tearful anxious. She denies any fever chills cough or sore throat. Has had a little bit of nasal congestion due to the change in weather but otherwise has been well denies any extremity numbness tingling or weakness. TRAVEL OUTSIDE OF THE [place] IN LAST 30 DAYS: No - Related Data Allergies/Adverse Reactions: dextromethorphan Allergy (Verified 05/04/18 06:24) gabapentin [Gabapentin] Allergy (Verified 11/12/12 13:37) tramadol [Tramadol] Allergy (Verified 11/12/12 13:37) Past Medical History - Social History Smoking Status: Current Some Day Smoker Frequency of alcohol use: None Drug Abuse: None Family History: Reviewed & Not Pertinent Patient has suicidal ideation: No Patient has homicidal ideation: No Renal/ Medical History: Denies: Hx Peritoneal Dialysis Musculoskeletal Medical History: Reports Hx Arthritis, Reports Hx Musculoskeletal Deformity, Reports Hx Musculoskeletal Trauma Psychiatric Medical History: Reports: Hx Anxiety, Hx Depression - anxiety Past Surgical History: Reports: Hx Gynecologic Surgery - tubal ligation, Hx Orthopedic Surgery - cervical fusion - Immunizations Immunizations up to date: Yes Hx Diphtheria, Pertussis, Tetanus Vaccination: Yes Review of Systems - Review of Systems Constitutional: denies: Chills, Fever Cardiovascular: Chest pain, Palpitations Gastrointestinal: Nausea. denies: Vomiting Musculoskeletal: Back pain, Joint pain, Muscle pain, Muscle stiffness. denies: Joint swelling Neurological/Psychological: Anxiety, Headaches -: Yes All other systems reviewed and negative Physical Exam - Vital signs Vitals: Temp Pulse Resp BP Pulse Ox 97.5 F 97 20 117/73 100 07/25/18 03:49 07/25/18 03:49 07/25/18 03:49 07/25/18 03:49 07/25/18 03:49 - Notes Notes: GENERAL_APPEARANCE: well_nourished, alert, cooperative, crying tearful histrionic VITALS: reviewed, see vital signs table. HEAD: no_swelling\tenderness on the head. EYES: PERRL, EOMI, conjunctiva_clear. NOSE: no_nasal_discharge. MOUTH: (-)decreased moisture. THROAT: no_throat_inflammation, no_airway_obstruction. no_lymphadenopathy NECK: supple, diffuse_neck_tenderness, (-)thyromegaly. BACK: Diffuse thoracic spine into the neck_back_tenderness. CHEST_WALL: no_chest_tenderness. LUNGS: no_wheezing, no_rales, no_rhonchi, (-)accessory muscle use, good air exchange bilateral. HEART: normal_rate, normal_rhythm, normal_S1, normal_S2, (-)S3, (-)S4, no_murmur, no_rub. ABDOMEN: normal_BS, soft, no_abd_tenderness, (-)guarding, (-)rebound, no_organomegaly, no_abd_masses. EXTREMITIES: Small amount of bruising on the right kneecap no deformities or signs of the knee are negative PMS intact distal, left shoulder no obvious deformity no obvious swelling no obvious ecchymosis hyperesthetic to touch. PMS intact left hand has brisk capillary refill. SKIN: warm, dry, good_color, no_rash. MENTAL_STATUS: speech_clear, oriented_X_3, full histrionic_affect, responds_appropriately to questions. NEURO: Neg Motor or Sensory Deficits on exam, CN 2-12 intact, DTR 2+ symmetric x 4, No cerbellar signs Course - Re-evaluation Re-evalutation: 07/25/18 06:25 43-year-old female history of chronic pain who had a ground-level fall yesterday. No loss of conscious but she fell days we will scan her head and neck. She is crying and tearful. She is a hurts all over mainly the right knee left shoulder neck and back. Were getting some radiographic findings. Patient is very anxious which is likely exacerbating her pain issues. She is neurologically intact. 07/25/18 08:23 X-rays are all negative for fracture. Spoke with the patient to take [id number] NSAIDs and I will prescribe some Flexeril for home. She is neurologically intact. She is sleeping and is calm down quite a bit. - Vital Signs Vital signs: Temp Pulse Resp BP Pulse Ox 97.5 F 97 23 H 117/73 100 07/25/18 03:49 07/25/18 03:49 07/25/18 07:00 07/25/18 03:49 07/25/18 06:00 - Diagnostic Test Radiology reviewed: Reports reviewed Radiology results interpreted by me: 07/25/18 08:[address] 07/25/18 06:16 IMPRESSION: SURGICAL CHANGES WITH HARDWARE. NO ACUTE FINDINGS IN THE CERVICAL SPINE. Chest X-Ray 07/25/18 06:16 IMPRESSION: NO ACUTE RADIOGRAPHIC FINDING IN THE CHEST. Head CT 07/25/18 06:16 IMPRESSION: NORMAL BRAIN CT WITHOUT CONTRAST. EVIDENCE OF ACUTE STROKE: NO. Knee X-Ray 07/25/18 06:17 IMPRESSION: NEGATIVE STUDY OF THE RIGHT KNEE. NO RADIOGRAPHIC EVIDENCE OF ACUTE INJURY. Shoulder X-Ray 07/25/18 06:17 IMPRESSION: NEGATIVE STUDY OF THE LEFT SHOULDER. NO RADIOGRAPHIC EVIDENCE OF ACUTE INJURY. Discharge - Discharge Clinical Impression: Fall Qualifiers: Encounter type: initial encounter Qualified Code(s): W19.XXXA - Unspecified fall, initial encounter Closed head injury Qualifiers: Encounter type: initial encounter Qualified Code(s): S09.90XA - Unspecified injury of head, initial encounter Neck sprain Qualifiers: Encounter type: initial encounter Qualified Code(s): S13.9XXA - Sprain of joints and ligaments of unspecified parts of neck, initial encounter Sprain of shoulder, left Qualifiers: Encounter type: initial encounter Shoulder sprain type: unspecified sprain Qualified Code(s): S43.402A - Unspecified sprain of left shoulder joint, initial encounter Contusion of knee, right Qualifiers: Encounter type: initial encounter Qualified Code(s): S80.01XA - Contusion of right knee, initial encounter Condition: Good Disposition: HOME, SELF-CARE Instructions: Head Injury Precautions ([facility]), Contusion ([facility]), Sprain ([facility]) Prescriptions: Cyclobenzaprine HCl [Flexeril 10 mg Tablet] 10 mg PO TIDP PRN #15 tab PRN Reason:
--- NOTE | 2018-07-25 07:41 | EKG REPORT ---
SEVERITY:- NORMAL ECG - SINUS RHYTHM : Confirmed by: Bar Rice MD 25-Jul-2018 07:40:29
--- NOTE | 2018-07-25 08:13 | RADIOLOGY REPORT (SQ) ---
EXAM DESCRIPTION: CHEST 2 VIEWS COMPLETED DATE/TIME: 07/25/2018 8:01 am REASON FOR STUDY: fall pain COMPARISON: 03/12/2017. EXAM PARAMETERS: NUMBER OF VIEWS: two views TECHNIQUE: Digital Frontal and Lateral radiographic views of the chest acquired. RADIATION DOSE: NA LIMITATIONS: none FINDINGS: LUNGS AND PLEURA: No opacities, masses or pneumothorax. No pleural effusion. MEDIASTINUM AND HILAR STRUCTURES: No masses or contour abnormalities. HEART AND VASCULAR STRUCTURES: Heart normal size. No evidence for failure. BONES: No acute findings. HARDWARE: Hardware in the cervical spine. OTHER: No other significant finding. IMPRESSION: NO ACUTE RADIOGRAPHIC FINDING IN THE CHEST. TECHNICAL DOCUMENTATION: JOB ID: [id number] [employer]- All Rights Reserved Reading location - IP/workstation name: [email or web address]
--- NOTE | 2018-07-25 08:13 | RADIOLOGY REPORT (SQ) ---
EXAM DESCRIPTION: SHOULDER LEFT 2 OR MORE VIEWS COMPLETED DATE/TIME: 07/25/2018 8:01 am REASON FOR STUDY: fall pain COMPARISON: None. NUMBER OF VIEWS: Three views. TECHNIQUE: Internal rotation, external rotation, and Y view images acquired of the left shoulder. LIMITATIONS: None. FINDINGS: MINERALIZATION: Normal. BONES: No acute fracture or dislocation. No worrisome bone lesions. JOINTS: No dislocation. VISUALIZED LUNGS AND RIBS: No pneumothorax. No rib fracture. SOFT TISSUES: No radiopaque foreign body. OTHER: No other significant finding. IMPRESSION: NEGATIVE STUDY OF THE LEFT SHOULDER. NO RADIOGRAPHIC EVIDENCE OF ACUTE INJURY. TECHNICAL DOCUMENTATION: JOB ID: [id number] [employer]- All Rights Reserved Reading location - IP/workstation name: [email or web address]
--- NOTE | 2018-07-25 08:14 | RADIOLOGY REPORT (SQ) ---
EXAM DESCRIPTION: KNEE RIGHT 2 VIEWS COMPLETED DATE/TIME: 07/25/2018 8:01 am REASON FOR STUDY: fall pain COMPARISON: None. NUMBER OF VIEWS: Two views. TECHNIQUE: AP and lateral radiographic images acquired of the right knee. LIMITATIONS: None. FINDINGS: MINERALIZATION: Normal. BONES: No acute fracture or dislocation. No worrisome bone lesions. JOINT: No effusion. SOFT TISSUES: No soft tissue swelling. No radio-opaque foreign body. OTHER: No other significant finding. IMPRESSION: NEGATIVE STUDY OF THE RIGHT KNEE. NO RADIOGRAPHIC EVIDENCE OF ACUTE INJURY. TECHNICAL DOCUMENTATION: JOB ID: [id number] [employer]- All Rights Reserved Reading location - IP/workstation name: [email or web address]
--- NOTE | 2018-07-25 08:17 | RADIOLOGY REPORT (SQ) ---
EXAM DESCRIPTION: CT CERVICAL SPINE WITHOUT COMPLETED DATE/TIME: 07/25/2018 7:54 am REASON FOR STUDY: fall pain COMPARISON: None. TECHNIQUE: Axial images acquired through the cervical spine without intravenous contrast. Images re viewed with lung, soft tissue and bone windows. Reconstructed coronal and sagittal MPR images review ed. Images stored on PACS. All CT scanners at this facility use dose modulation, iterative reconstruction, and/or weight based d osing when appropriate to reduce radiation dose to as low as reasonably achievable (ALARA). [facility]: Dose Right [facility]: CareDose [facility]: Dose Right [facility]: Teradose 4D [facility]: iSpecimen RADIATION DOSE: CT Rad equipment meets quality standard of care and radiation dose reduction techniq ues were employed. CTDIvol: 11.1 mGy. DLP: 186 mGy-cm. mGy. LIMITATIONS: None. FINDINGS: ALIGNMENT: Anatomic. MINERALIZATION: Normal. VERTEBRAL BODIES: No fractures or dislocation. DISCS: No significant disc disease. FACETS, LATERAL MASSES, POSTERIOR ELEMENTS: No fractures. No dislocation. No acute findings. HARDWARE: Anterior fusion with hardware at C5-C6 and C6-C7. VISUALIZED RIBS: No fractures. LUNG APICES AND SOFT TISSUES: No significant or acute findings. OTHER: No other significant finding. IMPRESSION: SURGICAL CHANGES WITH HARDWARE. NO ACUTE FINDINGS IN THE CERVICAL SPINE. TECHNICAL DOCUMENTATION: JOB ID: [id number] Quality ID # [id number]: Final reports with documentation of one or more dose reduction techniques (e.g., Au tomated exposure control, adjustment of the mA and/or kV according to patient size, use of iterative reconstruction technique) 2010 [employer]- All Rights Reserved Reading location - IP/workstation name: [email or web address]
--- NOTE | 2018-07-25 08:18 | RADIOLOGY REPORT (SQ) ---
EXAM DESCRIPTION: CT HEAD WITHOUT COMPLETED DATE/TIME: 07/25/2018 7:54 am REASON FOR STUDY: fall pain COMPARISON: 12/17/2010. TECHNIQUE: Axial images acquired through the brain without intravenous contrast. Images reviewed wi th bone, brain and subdural windows. Additional sagittal and coronal reconstructions were generated. Images stored on PACS. All CT scanners at this facility use dose modulation, iterative reconstruction, and/or weight based d osing when appropriate to reduce radiation dose to as low as reasonably achievable (ALARA). [facility]: Dose Right [facility]: CareDose [facility]: Dose Right [facility]: Teradose 4D [facility]: [employer] RADIATION DOSE: CT Rad equipment meets quality standard of care and radiation dose reduction techniq ues were employed. CTDIvol: 53.2 mGy. DLP: 1017 mGy-cm. mGy. LIMITATIONS: None. FINDINGS: VENTRICLES: Normal size and contour. CEREBRUM: No masses. No hemorrhage. No midline shift. No evidence for acute infarction. Normal gra y/white matter differentiation. No areas of low density in the white matter. CEREBELLUM: No masses. No hemorrhage. No alteration of density. No evidence for acute infarction. EXTRAAXIAL SPACES: No fluid collections. No masses. ORBITS AND GLOBE: No intra- or extraconal masses. Normal contour of globe without masses. CALVARIUM: No fracture. PARANASAL SINUSES: No fluid or mucosal thickening. SOFT TISSUES: No mass or hematoma. OTHER: No other significant finding. IMPRESSION: NORMAL BRAIN CT WITHOUT CONTRAST. EVIDENCE OF ACUTE STROKE: NO. COMMENT: Quality ID # 436: Final reports with documentation of one or more dose reduction techniques (e.g., Automated exposure control, adjustment of the mA and/or kV according to patient size, use of iterative reconstruction technique) TECHNICAL DOCUMENTATION: JOB ID: [id number] [employer]- All Rights Reserved Reading location - IP/workstation name: [email or web address]
[2018-07-25 08:46] VITALS: BP 119/71
== END 2018-07-25 08:47 | disposition home or self-care (01) ==
LOC: ER 03:33
DX: S09.90XA Unspecified injury of head, initial encounter (principal); S13.9XXA Sprain of joints and ligaments of unspecified parts of neck, initial encounter; S43.402A Unspecified sprain of left shoulder joint, initial encounter; S80.01XA Contusion of right knee, initial encounter; R06.02 Shortness of breath; R50.9 Fever, unspecified; R00.2 Palpitations; F17.200 Nicotine dependence, unspecified, uncomplicated; W18.30XA Fall on same level, unspecified, initial encounter; Z98.51 Tubal ligation status
CPT/HCPCS: 70450; 71046; 72125; 93005; 93010; 99285

== ENCOUNTER 2018-07-28 22:07 | Emergency (ER) | payer MEDICAID ==
--- NOTE | 2018-07-28 23:07 | RADIOLOGY REPORT (SQ) ---
EXAM DESCRIPTION: XR CHEST 2 VIEWS COMPLETED DATE/TME: 07/28/2018 00:00 CLINICAL HISTORY: 43 years, Female, rib pain COMPARISON: 07/25/2018 chest NUMBER OF VIEWS: 2 TECHNIQUE: Frontal and lateral views of the chest LIMITATIONS: None. FINDINGS: Heart size is normal. Postsurgical change cervical spine. Subsegmental atelectasis left lung base. Coarse interstitial changes suggesting mild interstitial edema and/or pneumonitis. Tiny bibasilar effusions are noted on the lateral view. Osteopenia IMPRESSION: Coarse interstitial change suggesting mild interstitial edema and/or pneumonitis. Tiny bibasilar effusions. copyright 2010 [employer]- All Rights Reserved
[2018-07-28] MEDS ORDERED: KETOROLAC TROMETHAMINE INJ/PF 30 MG/1 ML SDV IV ONE (23:16)
[2018-07-28 23:37] LABS: VENOUS BLOOD BASE EXCESS 8.7 mmol/L; VENOUS BLOOD HCO3 34.5 mmol/L (20-32); VENOUS BLOOD PCO2 53.8 mmHg (35-63); VENOUS BLOOD PH 7.43 (7.30-7.42)
[2018-07-28 23:40] LABS: ABSOLUTE EOSINOPHILS # (AUTO) 0.1 10^3/uL (0.0-0.6); ABSOLUTE LYMPHOCYTES (AUTO) 1.4 10^3/uL (0.5-4.7); ABSOLUTE MONOCYTES (AUTO) 1.1 10^3/uL (0.1-1.4); ABSOLUTE NEUT (AUTO) 11.3 10^3/uL (1.7-8.2); BASOPHILS % (AUTO) 0.1 % (0-2); EOSINOPHILS % (AUTO) 0.8 % (0-6); HEMATOCRIT 30.7 % (36.0-47.0); HEMOGLOBIN 10.5 g/dL (12.0-15.5); LYMPHOCYTES % (AUTO) 9.9 % (13-45); MEAN CORPUSCULAR HEMOGLOBIN 29.6 pg (27.0-33.4); MEAN CORPUSCULAR HGB CONC 34.4 g/dL (32.0-36.0); MEAN CORPUSCULAR VOLUME 86 fl (80-97); MONOCYTES % (AUTO) 7.6 % (3-13); PLATELET COUNT 334 10^3/uL (150-450); RED BLOOD COUNT 3.56 10^6/uL (3.72-5.28); RED CELL DISTRIBUTION WIDTH 15.3 % (11.5-14.0); SEGMENTED NEUTROPHILS % (AUTO) 81.6 % (42-78); TOTAL CELLS COUNTED % (AUTO) 100 %; WHITE BLOOD COUNT 13.9 10^3/uL (4.0-10.5)
[2018-07-28 23:50] LABS: ALANINE AMINOTRANSFERASE 36 U/L (9-52); ALKALINE PHOSPHATASE 251 U/L (38-126); ANION GAP 9 (5-19); ASPARTATE AMINO TRANSFERASE 15 U/L (14-36); BILIRUBIN,DIRECT 0.3 mg/dL (0.0-0.4); BILIRUBIN,TOTAL 0.5 mg/dL (0.2-1.3); BLOOD UREA NITROGEN 6 mg/dL (7-20); CALCIUM 8.2 mg/dL (8.4-10.2); CARBON DIOXIDE 31 mmol/L (22-30); CHLORIDE 94 mmol/L (98-107); CREATINE KINASE 36 U/L (30-135); GLUCOSE 106 mg/dL (75-110); POTASSIUM 3.7 mmol/L (3.6-5.0); SODIUM 134.3 mmol/L (137-145); TOTAL PROTEIN 6.1 g/dL (6.3-8.2)
[2018-07-28 23:51] LABS: LIPASE < 10.0 U/L (23-300)
[2018-07-29 00:02] LABS: CREATINE KINASE MB 0.56 ng/mL (<4.55)
[2018-07-29 00:07] LABS: TROPONIN I < 0.012 ng/mL
[2018-07-29 00:24] LABS: APPEARANCE,URINE SLIGHTLY-CLOUDY; BILIRUBIN,URINE NEGATIVE (NEGATIVE); COLOR,URINE YELLOW; GLUCOSE, URINE NEGATIVE (NEGATIVE); KETONES,URINE NEGATIVE (NEGATIVE); LEUKOCYTE ESTERASE,URINE TRACE (NEGATIVE); NITRITE,URINE NEGATIVE (NEGATIVE); PROTEIN,URINE NEGATIVE (NEGATIVE); URINE SPECIFIC GRAVITY 1.011
--- NOTE | 2018-07-29 00:26 | RADIOLOGY REPORT (SQ) ---
EXAM DESCRIPTION: US ABDOMEN LIMITED COMPLETED DATE/TME: 07/28/2018 23:16 CLINICAL HISTORY: 43 years, Female, RUQ pain, nausea COMPARISON: None. TECHNIQUE: Limited right upper quadrant ultrasound LIMITATIONS: None. FINDINGS: The liver is homogenous in echotexture without focal lesion. No gallstones or gallbladder wall thickening. CBD measures 1.1 mm. No pericholecystic fluid. Visualized abdominal aorta, right kidney, pancreas are unremarkable. No ascites IMPRESSION: Negative exam copyright 2010 [employer]- All Rights Reserved
--- NOTE | 2018-07-29 01:25 | RADIOLOGY REPORT (SQ) ---
EXAM DESCRIPTION: CT ABDOMEN PELVIS WITHOUT IV CONTRAST COMPLETED DATE/TME: 07/29/2018 00:49 CLINICAL HISTORY: 43 years, Female, right flank pain, hematuria COMPARISON: Ultrasound from today's date TECHNIQUE: 271 Images stored on PACS. All CT scanners at this facility use dose modulation, iterative reconstruction, and/or weight based dosing when appropriate to reduce radiation dose to as low as reasonably achievable (ALARA). [facility]: Dose Right [facility]: CareDose [facility]: Dose Right [facility]: Teradose 4D [facility]: [employer] LIMITATIONS: None. FINDINGS: Limited evaluation of the lung bases shows small bibasilar effusions with adjacent consolidative change. Osseous structures are grossly intact. Fatty infiltrative change to the liver is suspected. Hepatic granulomata noted. Subcentimeter hypodensity in the left hepatic lobe likely cyst or hemangioma in the absence of cancer history. The spleen, adrenal glands, pancreas, and kidneys are unremarkable. No gross evidence for bowel obstruction. Large amount stool in the colon. Small amount of free fluid in the pelvis which may be physiologic. No free air. The appendix is not well seen however there is no pericecal inflammation to suggest acute appendicitis.. IMPRESSION: Probable fatty infiltrative change to the liver. Subcentimeter hypodensity in the liver likely reflects tiny cyst or hemangioma. Large amount of stool in the colon. Trace of free fluid in the pelvis which is likely physiologic TECHNICAL DOCUMENTATION: Quality ID # 436: Final reports with documentation of one or more dose reduction techniques (e.g., Automated exposure control, adjustment of the mA and/or kV according to patient size, use of iterative reconstruction technique) copyright 2010 [employer]- All Rights Reserved
[2018-07-29 01:28] VITALS: BP 109/72
--- NOTE | 2018-07-29 01:33 | RADIOLOGY REPORT (SQ) ---
EXAM DESCRIPTION: CT CHEST ANGIOGRAPHY WITHOUT THEN WITH IV CONTRAST COMPLETED DATE/TME: 07/29/2018 00:59 CLINICAL HISTORY: 43 years, Female, SOB, + d-dimer COMPARISON: None. TECHNIQUE: 512 Images stored on PACS. All CT scanners at this facility use dose modulation, iterative reconstruction, and/or weight based dosing when appropriate to reduce radiation dose to as low as reasonably achievable (ALARA). Axial CTA images were obtained with coronal and sagittal MIPS reconstructions [facility]: Dose Right [facility]: CareDose [facility]: Dose Right [facility]: Teradose 4D [facility]: [employer] LIMITATIONS: None. FINDINGS: Post surgical changes of the cervical spine. Slightly increased soft tissue density anterior to the postsurgical changes in the C-spine may reflect scarring. The mediastinal vasculature enhances normally. No intraluminal filling defect to suggest pulmonary embolus. Negative for thoracic aortic aneurysm or dissection. The heart and pericardium are unremarkable. Limited evaluation of the upper abdomen is unremarkable. Small bilateral pleural effusions. No pneumothorax. Mild prominence of the pulmonary interstitium suggesting mild interstitial edema. Superimposed patchy airspace opacities bilaterally may reflect alveolar edema component versus pneumonitis. No pneumothorax IMPRESSION: Negative for pulmonary embolus, thoracic aortic aneurysm, or dissection. Small bilateral pleural effusions with mild interstitial edema. Patchy groundglass opacities bilaterally could reflect mild alveolar edema and/or pneumonitis TECHNICAL DOCUMENTATION: Quality ID # 436: Final reports with documentation of one or more dose reduction techniques (e.g., Automated exposure control, adjustment of the mA and/or kV according to patient size, use of iterative reconstruction technique) copyright 2010 [employer]- All Rights Reserved
[2018-07-29] MEDS ORDERED: HYDROMORPHONE HCL INJ/PF 2 MG/ML AMPULE IV ONE (01:39)
[2018-07-29] MEDS ORDERED: AMOXICILLIN TR/POT CLAVULANATE 500-125 MG TAB PO ONE (01:43)
[2018-07-29] MEDS ORDERED: OXYCODONE-ACETAMINOPHEN 5-325 MG TABLET PO ONE (01:43)
--- NOTE | 2018-07-29 04:36 | ER Document Report ---
Entered by NAZ GEORGE SCRIBE 07/29/18 0001 Acting as scribe for:JUAN WATTERS DO ED General - General Chief Complaint: Rib Pain Stated Complaint: LEFT RIB PAIN Time Seen by Provider: 07/28/18 22:53 Mode of Arrival: Ambulatory Information source: Patient Notes: Patient is a 43 year old female presenting to the emergency department complaining of right sided back pain onset yesterday. She states her pain is in her mid right back and radiates into her right shoulder. She also states she has numbness and tingling in her bilateral hands. She describes her back pain as waxing and waning that is exacerbated movement, walking and deep breathing. She states she has taken Aleve and Tylenol which minimally helped relieve her pain. She also complains of dysuria, further stating she it causes pain in her neck for her to urinate and further complains of nausea. She reports a family history of blood clots and pulmonary embolism and is concerned that she may have a blood clot and would like to be tested for this today. She denies any vomiting or hematuria. She mentions recently helping her friend move their washer and jerking forward to catch the washer. She states she did not fall but had subsequent right sided neck and shoulder pain. She was seen for this several days ago and treated with Flexeril. States that she has not taken it for this pain so she does not know if it helps. Patients LMP was 07/11/18. TRAVEL OUTSIDE OF THE [place] IN LAST 30 DAYS: No - Related Data Allergies/Adverse Reactions: dextromethorphan Allergy (Verified 05/04/18 06:24) gabapentin [Gabapentin] Allergy (Verified 11/12/12 13:37) tramadol [Tramadol] Allergy (Verified 11/12/12 13:37) Past Medical History - General Information source: Patient - Social History Smoking Status: Current Every Day Smoker Chew tobacco use (# tins/day): No Frequency of alcohol use: Rare Drug Abuse: None Family History: Reviewed & Not Pertinent Patient has suicidal ideation: No Patient has homicidal ideation: No Renal/ Medical History: Denies: Hx Peritoneal Dialysis Musculoskeletal Medical History: Reports Hx Arthritis, Reports Hx Musculoskeletal Deformity, Reports Hx Musculoskeletal Trauma Psychiatric Medical History: Reports: Hx Anxiety, Hx Depression - anxiety Past Surgical History: Reports: Hx Gynecologic Surgery - tubal ligation, Hx Orthopedic Surgery - cervical fusion - Immunizations Immunizations up to date: Yes Hx Diphtheria, Pertussis, Tetanus Vaccination: Yes Review of Systems - Review of Systems Constitutional: No symptoms reported EENT: No symptoms reported Cardiovascular: No symptoms reported Respiratory: No symptoms reported Gastrointestinal: See HPI, Nausea Genitourinary: No symptoms reported Female Genitourinary: No symptoms reported Musculoskeletal: See HPI Skin: No symptoms reported Hematologic/Lymphatic: No symptoms reported Neurological/Psychological: No symptoms reported -: Yes All other systems reviewed and negative Physical Exam - Vital signs Vitals: Temp Pulse BP Pulse Ox 100.0 F 96 114/70 97 07/28/18 22:14 07/28/18 22:14 07/28/18 22:14 07/28/18 22:14 - Notes Notes: GENERAL: Alert, appears uncomfortable. HEAD: Normocephalic, atraumatic. EYES: Pupils equal, round, and reactive to light. Extraocular movements intact. ENT: Oral mucosa moist, tongue midline. NECK: Full range of motion. Supple. Trachea midline. LUNGS: Clear to auscultation bilaterally, no wheezes, rales, or rhonchi. Splinting with deep breath but otherwise no respiratory distress. HEART: Mild tachycardia. No murmurs, gallops, or rubs. ABDOMEN: Soft, RUQ tender to palpation, complains of pain shooting into back, guarding, positive Mullins's point. Non-distended. Bowel sounds present in all 4 quadrants. EXTREMITIES: Moves all 4 extremities spontaneously. No edema, radial pulses 2/4 bilaterally. No cyanosis. NEUROLOGICAL: Alert and oriented x3. Normal speech. PSYCH: Normal affect, normal mood. SKIN: Warm, dry, normal turgor. No rashes or lesions noted. BACK: Right CVA tenderness to percussion. Paraspinal tenderness to palpation in the right thoracolumbar junction junction. Course - Re-evaluation Re-evalutation: 07/29/18 02:02 CBC shows leukocytosis of 13.9, hemoglobin is somewhat low at 10.5, normal platelets, d-dimer was checked due to her family history of PE, her tachypnea and her pain in her chest, it was elevated at 1.83, venous blood gas shows slightly elevated pH at 7.43, not consistent with a respiratory acidosis from hyperventilation. CMP shows mildly low sodium at 134.3, renal function is normal, alkaline phosphatase mildly elevated at 251 otherwise LFTs are normal, lactic acid is normal, lipase is undetectable, test is negative, cardiac enzymes negative, urinalysis shows small blood and trace leukocyte esterase but only 8 WBCs and 2 RBCs with 8 squamous epithelial cells, think this is contamination rather than true infection. I did check a CT of the abdomen and pelvis renal protocol and there is no evidence of a stone. Chest x-ray and CT angiogram of the chest shows bilateral groundglass opacities suspicious for pneumonitis. Patient will be started on Augmentin, given Tessalon Perles for cough suppression, also given muscle relaxers in the form of Robaxin for some of the pain she is having in her back that may be referred pain from the bilateral pneumonitis or may be true muscle spasm. Discharged home. Of note the patient has been observed walking back and forth to the bathroom without any difficulty by the PCT is on several occasions. - Vital Signs Vital signs: Temp Pulse Resp BP Pulse Ox 98.6 F 86 16 109/72 95 07/29/18 01:26 07/29/18 01:26 07/29/18 01:26 07/29/18 01:26 07/29/18 01:26 - Laboratory Result Diagrams: 07/28/18 23:25 07/28/18 23:25 Laboratory results interpreted by me: 07/28/18 07/28/18 07/28/18 23:25 23:25 23:25 WBC 13.9 H RBC 3.56 L Hgb 10.5 L Hct 30.7 L RDW 15.3 H Seg Neutrophils % 81.6 H Lymphocytes % 9.9 L Absolute Neutrophils 11.3 H D-Dimer VBG pH 7.43 H VBG HCO3 34.5 H Sodium 134.3 L Chloride 94 L Carbon Dioxide 31 H BUN 6 L Creatinine 0.47 L Calcium 8.2 L Alkaline Phosphatase 251 H Total Protein 6.1 L Albumin 3.0 L Lipase < 10.0 L Urine Blood Urine Urobilinogen Ur Leukocyte Esterase 07/28/18 07/28/18 23:25 23:30 WBC RBC Hgb Hct RDW Seg Neutrophils % Lymphocytes % Absolute Neutrophils D-Dimer 1.83 H VBG pH VBG HCO3 Sodium Chloride Carbon Dioxide BUN Creatinine Calcium Alkaline Phosphatase Total Protein Albumin Lipase Urine Blood SMALL H Urine Urobilinogen 4.0 H Ur Leukocyte Esterase TRACE H - EKG Interpretation by Me Additional EKG results interpreted by me: 07/29/18 02:03 EKG shows sinus rhythm at a rate of 83, normal axis, normal intervals, no ST segment elevations or depressions, no T wave inversions per my interpretation. Discharge - Discharge Clinical Impression: Pneumonitis Condition: Stable Disposition: HOME, SELF-CARE Additional Instructions: Pneumonitis Your examination indicates that you have pneumonitis, it is very similar to pneumonia but slightly more widespread. This is an infection of the lung tissue, usually caused by bacteria or a virus. Symptoms include cough, fever, shaking chills, chest pain, shortness of breath, and coughing up bloody sputum. Treatment for bacterial pneumonia or pneumonitis includes rest, antibiotics for 10 to 14 days, increasing your clear liquid intake, a cool mist humidifier at your bedside, and fever medication. Often, a repeat chest X-ray is performed in a few weeks--even if you feel better--to ascertain whether the infection has completely resolved and no underlying lung problem is present. You should call the physician if you develop persistent vomiting, high fever that does not respond to fever medication, increasing shortness of breath, confusion, or lethargy. Also, failure to improve within two to three days is an indication for re-examination. I have prescribed Augmentin which is an antibiotic to help fight this infection. It may cause mild diarrhea. If it causes severe diarrhea please either return to the emergency department or call and ask us to switch your antibiotic. I have also prescribed Tessalon Perles, take 1 every 8 hours to decrease your cough. I have also prescribed Robaxin, it is a muscle relaxer. Take it as directed to decrease the pain in your back and shoulders. Prescriptions: Amoxicillin/Potassium Clav [Augmentin 500-125 Tablet] 1 each PO TID #30 tablet Benzonatate [Tessalon Perles 100 mg Capsule] 100 mg PO ASDIR PRN #40 capsule PRN Reason: Methocarbamol [Robaxin-750] 750 mg PO TIDP PRN #14 tablet PRN Reason: Scribe Attestation: 07/29/18 04:36 I personally performed the services described in the documentation, reviewed and edited the documentation which was dictated to the scribe in my presence, and it accurately records my words and actions. I personally performed the services described in the documentation, reviewed and edited the documentation which was dictated to the scribe in my presence, and it accurately records my words and actions.
--- NOTE | 2018-07-29 08:11 | EKG REPORT ---
SEVERITY:- ABNORMAL ECG - SINUS RHYTHM NONSPECIFIC T ABNORMALITIES, ANT-LAT LEADS : Confirmed by: Bar Rice MD 29-Jul-2018 08:09:49
== END 2018-07-29 02:20 | disposition home or self-care (01) ==
LOC: ER 22:07
DX: J18.9 Pneumonia, unspecified organism (principal); R07.81 Pleurodynia; M54.5 Low back pain; R11.0 Nausea; F17.200 Nicotine dependence, unspecified, uncomplicated; Z98.51 Tubal ligation status; Z98.1 Arthrodesis status
CPT/HCPCS: 93005; 99284; 96374; 36415; 82553; 82550; 83690; 84703; 85025; 80053; 81001; 84484; 85379; 82803; 83605; 71046; 76705; 71275; 74176; 93010; J3490; J1885